=== PATIENT | female | born 1970 | race Caucasian/White ===

== ENCOUNTER 2018-01-11 08:05 | Outpatient (CLI) | payer OTHER | END 2018-01-11 08:06 | disposition home or self-care (01) | LOC: BICMAMMO 08:05 | PROVIDERS: ATTEND Family Medicine | DX: Z12.31 Encounter for screening mammogram for malignant neoplasm of breast (principal); N64.89 Other specified disorders of breast | CPT/HCPCS: 77063; 77067 ==

== ENCOUNTER 2018-02-01 08:58 | Outpatient (CLI) | payer OTHER ==
--- NOTE | 2018-02-01 10:16 | ULT ---
RIGHT BREAST ULTRASOUND: History: New 9 mm lesion seen at the 11 o'clock position of the right breast on mammogram. FINDINGS: Real-time imaging of the areas of concern shows a slightly oblong and slightly lobular hypoechoic les ion measuring 9 mm in size at the 11 o'clock position in the right breast. It has some internal echoe s. It does not fill definite simple cyst criteria. IMPRESSION: 1. BIRADS category 4 - suspicious. Biopsy is recommended. In this case, I would recommend an ultrasou nd guided procedure. Initially I would recommend attempt at cyst aspiration, if this area does not as pirate, then biopsy would be recommended. Findings were discussed with the patient. POS: OFF
--- NOTE | 2018-02-01 12:45 | ULT ---
RIGHT BREAST CYST ASPIRATION: History: Indeterminate right breast lesion noted on mammogram and ultrasound at the 11 o'clock position of rig ht breast which was recommended for aspiration and/or biopsy. Technique: After informed consent was obtained, the patient was prepped and draped in the normal sterile fashion . Local anesthesia was obtained with 1% Xylocaine mixed with sodium bicarb. A small skin incision was made with a #11 scalpel blade and an 18 gauge spinal needle was introduced under ultrasound guidance into a 5 x 9 mm complex appearing hypoechoic lesion at the 11 o'clock position of the right breast. A small amount of minimally blood tinged fluid was obtained. This does appear to represent a cyst as this is significantly reduced in size to 2 x 5 mm after aspiration. Due to the fact that there is yane y minimal fluid, it was not sent to lab. IMPRESSION: 1. BIRADS category 2 - benign findings. Ultrasound guided cyst aspiration shows near complete aspirat ion of a cystic appearing lesion. No further work up other than routine mammography is recommended. POS: OFF
== END 2018-02-01 08:59 | disposition home or self-care (01) ==
LOC: BICMAMMO 08:58
PROVIDERS: ATTEND Family Medicine
DX: R92.2 Inconclusive mammogram (principal); N63.10 Unspecified lump in the right breast, unspecified quadrant; N60.11 Diffuse cystic mastopathy of right breast
CPT/HCPCS: 19100; 76942; G0279

== ENCOUNTER 2020-01-30 14:15 | Outpatient (CLI) | payer BC ==
--- NOTE | 2020-01-30 15:59 | MMO ---
Bilateral MAMMO Bilat Screen [facility]. CLINICAL HISTORY: Patient is 49 years old and is seen for screening. The patient has no family history of breast cancer. The patient has no personal history of cancer. The patient has a history of right Cyst Aspiration in January, - benign. VIEWS: The views performed were: bilateral craniocaudal with tomosynthesis and bilateral mediolateral oblique with tomosynthesis. FILMS COMPARED: The present examination has been compared to prior imaging studies performed at [facility] on 01/11/2018 and 02/01/2018. This study has been interpreted with the assistance of computer-aided detection. MAMMOGRAM FINDINGS: There are scattered fibroglandular densities. Benign calcifications are noted bilaterally. There are no suspicious masses, suspicious calcifications, or new areas of architectural distortion. IMPRESSION: THERE IS NO MAMMOGRAPHIC EVIDENCE OF MALIGNANCY. A ROUTINE FOLLOW-UP MAMMOGRAM IN 1 YEAR IS RECOMMENDED. THE RESULTS OF THIS EXAM WERE SENT TO THE PATIENT. ACR BI-RADS Category 2 - Benign finding MAMMOGRAPHY NOTE: 1. A negative mammogram report should not delay a biopsy if a dominant of clinically suspicious mass is present. 2. Approximately 10% to 15% of breast cancers are not detected by mammography. 3. Adenosis and dense breasts may obscure an underlying neoplasm. Reported by: JOSÉ LUIS CARREON MD Electonically Signed: [id number]
== END 2020-01-30 14:16 | disposition home or self-care (01) ==
LOC: BICMAMMO 14:15
PROVIDERS: ATTEND Family Medicine
DX: Z12.31 Encounter for screening mammogram for malignant neoplasm of breast (principal)
CPT/HCPCS: 77063; 77067

== ENCOUNTER 2022-05-19 09:51 | Outpatient (CLI) | payer OTHER | END 2022-05-19 09:52 | disposition home or self-care (01) | LOC: BICMAMMO 09:51 | PROVIDERS: ATTEND Family Medicine | DX: Z12.31 Encounter for screening mammogram for malignant neoplasm of breast (principal) | CPT/HCPCS: 77063; 77067 ==

== ENCOUNTER 2024-10-23 08:18 | Outpatient (CLI) | payer BC | END 2024-10-23 08:19 | disposition home or self-care (01) | LOC: BICMAMMO 08:18 | PROVIDERS: ATTEND Family Medicine | DX: Z12.31 Encounter for screening mammogram for malignant neoplasm of breast (principal) | CPT/HCPCS: 77063; 77067 ==